=== PATIENT | female | born 1935 | race Caucasian/White ===

== ENCOUNTER 2022-01-13 08:34 | Outpatient (CLI) | payer MEDICARE | END 2022-01-13 08:35 | disposition home or self-care (01) | LOC: CSHMRI 08:34 | PROVIDERS: ATTEND Physician Assistant Medical | DX: C78.6 Secondary malignant neoplasm of retroperitoneum and peritoneum (principal); C79.89 Secondary malignant neoplasm of other specified sites | CPT/HCPCS: 72197 ==